=== PATIENT | female | born 1980 | race Caucasian/White ===

== ENCOUNTER 2018-09-06 12:34 | Emergency (ER) | payer OTHER ==
[~2018-09-06] VITALS: Ht 167.6 cm; Wt 64.9 kg
[2018-09-06] MEDS ORDERED: PRENATABS FA T1 EACH (12:57)
== END 2018-09-06 15:47 | disposition home or self-care (01) ==
LOC: ER 12:34
DX: O03.9 Complete or unspecified spontaneous abortion without complication (principal)